=== PATIENT | male | born 1975 | race Caucasian/White ===

== ENCOUNTER 2017-01-29 18:24 | Emergency (ER) | payer OTHER ==
--- NOTE | ~2017-01-29 | CT71 ---
[facility] A Service [facility] RADIOLOGY TEXT RESULTS PATIENT: CAMILA CLINTON LOCATION: SED : 77 UNIT #: [id number] AGE: [address]: Jackie Baez APRN SEX: M ORDER DR: [id number] [place] [id number] E MR#: [id number] Acc #: [id number] NAME: CAMILA CLINTON : 1975 SEX: M STUDY DATE/TIME: 01/29/2017 19:06 UNIT: SED ROOM: STUDY DESCRIPTION: CT Head Wo Contrast Attending Physician: Jackie Baez A.P.R.N. Ordering Physician: Jackie Baez A.P.R.N. Primary Care Physician: No Primary Care Physician MEDICAL IMAGING REPORT This report is preliminary unless electronic signature is present. EXAM Noncontrast head CT. HISTORY 41-year-old male hit in head with metal pole today, laceration top of head. COMPARISON Comparison head CT, 04/03/2015. TECHNIQUE This CT exam was performed with one or more of the following radiation dose reduction techniques: automatic exposure control, adjustment of mA and/or kV according to patient size, and iterative reconstruction. FINDINGS Axial noncontrast imaging of the brain demonstrates the brain parenchyma to be normal. No mass, mass effect or midline shift. No hemorrhage or abnormal extraaxial fluid collections. Bilateral ethmoid sinus mucosal disease. IMPRESSION No acute intracranial abnormality identified. Dictated by... Edwina Collado M.D. THIS IS AN ELECTRONICALLY VERIFIED REPORT Edwina Collado M.D. at 02/01/2017 6:07 AM TIFFANIES/[facility] A Service [facility] RADIOLOGY TEXT RESULTS PATIENT: CAMILA CLINTON LOCATION: SED : 77 UNIT #: [id number] AGE: [address]: Nations,Jackie M OFFICE SERVICES REPRESENTATIVE SEX: M ORDER DR: TD: 01/29/2017 23:34 JOB #: [id number] MEDICAL IMAGING REPORT Page 1 of 1
[~2017-01-29 18:24] MED LIST: ALBUTEROL17 GM INH; ALBUTEROL20 ml INH; AMOXICILLIN500 M1 PO; AMOXIL500 M2 PO; AUGMENTIN875 MG PO; B/P MED; HCTZ PO; HYDROCODON-ACE1 EAC9 PO; LIDODERM30 EA TOP; NO MEDICATIONS; PREDNISONE PO; PROMETHAZINE D118 ML PO; TAMIFLU75 M1 PO; TYLENOL #3 PO; VOLTAREN75 MG PO; ZITHROMAX PO
[2017-01-29] MEDS ORDERED: ZYRTEC PO (18:32)
== END 2017-01-29 20:19 | disposition home or self-care (01) ==
LOC: SED 18:24
DX: S01.01XA Laceration without foreign body of scalp, initial encounter (principal); Z79.899 Other long term (current) drug therapy; W50.0XXA Accidental hit or strike by another person, initial encounter; Y92.009 Unspecified place in unspecified non-institutional (private) residence as the place of occurrence of the external cause
CPT/HCPCS: 12001; 70450; 99284

== ENCOUNTER 2017-06-02 15:28 | Emergency (ER) | payer OTHER ==
--- NOTE | ~2017-06-02 | EKG ---
PATIENT: CAMILA CLINTON UNIT #: [id number] Ventricular Rate: 94 BPM Atrial Rate: 94 BPM P-R Interval: 148 ms QRS Duration: 100 ms Q-T Interval: 344 ms QTC Calculation(Bezet): 430 ms P [place]: 46 degrees Calculated R [place]: 16 degrees Calculated T [place]: 23 degrees Diagnosis Line: Normal sinus rhythm Diagnosis Line: Minimal voltage criteria for LVH, may be normal Diagnosis Line: variant Diagnosis Line: Borderline ECG Diagnosis Line: No previous ECGs available Diagnosis Line: Confirmed by CATALINA MUÑOZ MD ([id number]) on Diagnosis Line: 06/04/2017 9:10:39 AM INTERPRETING MD: WANDA RIDER
[~2017-06-02 15:28] MED LIST changes: +ZYRTEC PO
[2017-06-02 16:08] LABS: BASOPHIL# 0.1 X10e3 (0-0.3); BASOPHIL% 1.4 % (0-2.5); EOSINOPHIL# 0.1 X10e3 (0-0.7); EOSINOPHIL% 1.5 % (0.0-7.0); HEMATOCRIT 47.8 % (38.0-50.0); HEMOGLOBIN 16.2 gm/dL (13.0-16.0); LYMPHOCYTE# 2.1 X10e3 (1.0-3.5); MEAN CELL VOLUME 86.9 FL (83-96); MEAN CORPUSCULAR HEMOGLOBIN 29.5 PG (28-34); MEAN CORPUSCULAR HGB CONC 33.9 g/dL (30-36); MONOCYTE# 0.7 X10e3 (0-1.0); MONOCYTE% 7.4 % (3.0-12.0); NEUTROPHIL% 66.7 % (40-75); PLATELET COUNT 206 X10e3 (140-420); RED CELL DISTRIBUTION WIDTH 14.1 % (11.0-15.5)
[2017-06-02 16:08] LABS: POC - CKMB 1.4 ng/mL (0.0-7.9)
[2017-06-02 16:09] LABS: DIFF IND NO
[2017-06-02 16:09] LABS: POC - TROPONIN <0.05 ng/mL (<=0.05)
[2017-06-02 16:18] LABS: ALBUMIN SERUM 5.4 g/dL (3.5-5.0); BILIRUBIN, DIRECT 0.1 mg/dL (0.0-0.2); BILIRUBIN,INDIRECT 0.8 mg/dL (0.0-0.9); BILIRUBIN,TOTAL 0.9 mg/dL (0.2-2.0); BUN/CREATININE RATIO 13.33; CALCIUM SERUM 9.9 mg/dL (8.4-10.2); CREATININE SERUM 1.2 mg/dL (0.6-1.4); GLOM FILT RATE Estimated 75.2 mL/min (>60); POTASSIUM 3.7 mmol/L (3.5-5.1); PROTEIN TOTAL SERUM 8.6 g/dL (6.0-8.3)
== END 2017-06-02 17:32 | disposition home or self-care (01) ==
LOC: SED 15:28
PROVIDERS: Emergency Medicine
DX: R42 Dizziness and giddiness (principal); R53.83 Other fatigue; R68.84 Jaw pain; R41.3 Other amnesia; Z79.899 Other long term (current) drug therapy
CPT/HCPCS: 36415; 80048; 80076; 82553; 83874; 84484; 85025; 93005; 99284